=== PATIENT | female | born 1975 | race Caucasian/White ===

== ENCOUNTER → 2021-12-21 | Outpatient (CLI) | payer BC ==
[~2021-12-21] MED LIST: MOTRIN 600600 MG/TAB PO; PERCOCET 325 MG1 TA2 PO; PRENATAL1 TA7 PO
== END ==
LOC: MC.RAD 10:41
DX: N64.89 Other specified disorders of breast (principal)

== ENCOUNTER → 2023-12-29 | Outpatient (CLI) | payer BC | LOC: MC.RAD 09:55 | DX: N63.25 Unspecified lump in the left breast, overlapping quadrants (principal) ==